=== PATIENT | female | born 1940 | race Caucasian/White ===

== ENCOUNTER 2017-02-21 06:24 | Day surgery (SDC) | payer OTHER ==
[~2017-02-21] VITALS: Ht 149.9 cm; Wt 63.2 kg
[~2017-02-21 06:24] MED LIST: ACET-66 PO; ALBU8.5H8 IH; ATOR10TA84 PO; CALC-916 PO; ESCI20TA PO; FLUT16H NASAL; GABA-531 PO; LEVO500 PO; LIRA0.6P SQ; METF500T4 PO; MOME13HF IH; MONT10TA21 PO; MULT1TAB66 PO; PRED10 PO; RAME8TAB8 PO; RANI150T7 PO; RANO500T3 PO; TIMO.5OS OU; VALS80TA2 PO; VITAD1000 PO; XALA2.5OS OU
[2017-02-21] MEDS ORDERED: SODIUM CHLORIDE 0.9% 1,000 ML IV ONE ×2 (06:28→06:30)
[2017-02-21 07:22] LABS: GLUCOSE,POINT OF CARE 183 MG/DL (70-110)
[2017-02-21] MEDS ORDERED: MIDAZOLAM HCL 2 MG/2 ML VIAL ONE (07:30)
[2017-02-21] MEDS ORDERED: FentaNYL CITRATE-PF 100 MCG/2 ML VIAL ONE (07:30)
[2017-02-21] MEDS ORDERED: MethylPREDNISolone SOD SUCC 125 MG/2 ML VIAL IVP ONE (09:00)
[2017-02-21] MEDS ORDERED: MethylPREDNISolone SOD SUCC 125 MG/2 ML VIAL ONE (09:18)
[2017-02-21] MEDS ORDERED: OXYGEN THERAPY IH SCH (20:00)
[2017-02-21] MEDS ORDERED: LIDOCAINE HCL 2% 30 ML JELLY ONE (21:13)
[2017-02-21] MEDS ORDERED: LIDOCAINE HCL 4% 50 ML SOLUTION ONE (21:13)
[2017-02-21] MEDS ORDERED: BENZOCAINE 20% 50 MCG/SPRAY 57 GM ONE (21:13)
[2017-02-21] MEDS ORDERED: ALBUTEROL SULFATE 2.5 MG/0.5 ML NEB SOLUTION NEB ONE (21:13)
== END 2017-02-21 10:20 | disposition home or self-care (01) ==
LOC: SURGERY 06:24
PROVIDERS: ATTEND Internal Medicine Critical Care Medicine
DX: J38.4 Edema of larynx (principal); J44.9 Chronic obstructive pulmonary disease, unspecified; E11.9 Type 2 diabetes mellitus without complications; B37.0 Candidal stomatitis; Z98.41 Cataract extraction status, right eye; Z98.890 Other specified postprocedural states
CPT/HCPCS: 31623; 31624; 71010; 82962; 87015 ×2; 87070; 87077; 87101; 87186; 87205; 87220; 88108; 88312; 93005; J2250; J2930; J3010; J7030